=== PATIENT | female | born 1960 | race American Indian/Alaskan Native ===

== ENCOUNTER 2021-07-26 12:57 | Emergency (ER) | payer MEDICAID ==
[2021-07-26] MEDS ORDERED: cloNIDine 0.1 MG TAB PO ONE ×2 (14:19→15:55)
--- NOTE | 2021-07-26 14:54 | Emergency Department Report ---
ED General Adult HPI - General Chief complaint: High BP Stated complaint: MARIE, FEELS VIBRATIONS THRU BODY Time Seen by Provider: 07/26/21 13:55 Source: patient Mode of arrival: Ambulatory Limitations: No Limitations - History of Present Illness Initial comments: Patient is 60 years old female with history of hypertension. Patient presented to the ER comedy by her family for evaluation of elevated blood pressure and generalized numbness and vibration in her body for the last 7 months. Patient denied any headache, neck pain, chest pain or shortness of breath. Patient denied any focal weakness, bowel or bladder incontinence. Family stated that she is not compliant with her medication. Severity scale (0 -10): 5 - Related Data Allergies Allergy/AdvReac Type Severity Reaction Status Date / Time No Known Allergies Allergy Verified 07/26/21 14:18 ED Review of Systems ROS: Stated complaint: MARIE, FEELS VIBRATIONS THRU BODY Other details as noted in HPI Comment: All other systems reviewed and negative Constitutional: denies: chills, fever Respiratory: denies: cough, shortness of breath, SOB with exertion Cardiovascular: denies: chest pain, palpitations Gastrointestinal: denies: abdominal pain, nausea, vomiting Neurological: paresthesias (Chronic) ED Physical Exam - General Limitations: No Limitations General appearance: alert, in no apparent distress - Head Head exam: Present: atraumatic, normocephalic, normal inspection - Eye Eye exam: Present: normal appearance, PERRL - ENT ENT exam: Present: normal exam, normal orophraynx, mucous membranes moist - Neck Neck exam: Present: normal inspection, full ROM. Absent: tenderness, m eningismus - Respiratory Respiratory exam: Present: normal lung sounds bilaterally - Cardiovascular Cardiovascular Exam: Present: regular rate, normal rhythm, normal heart sounds - GI/Abdominal GI/Abdominal exam: Present: soft, normal bowel sounds. Absent: distended, tenderness, guarding, rebound, rigid, organomegaly, mass, bruit, pulsatile mass, hernia - Extremities Exam Extremities exam: Present: normal inspection, full ROM, normal capillary refill. Absent: tenderness - Back Exam Back exam: Present: normal inspection, full ROM. Absent: CVA tenderness (R), CVA tenderness (L) - Neurological Exam Neurological exam: Present: alert, oriented X3, CN II-XII intact, normal gait, reflexes normal. Absent: motor sensory deficit - Psychiatric Psychiatric exam: Present: normal mood - Skin Skin exam: Present: warm, intact, normal color ED Course Vital Signs 07/26/21 07/26/21 07/26/21 14:15 15:08 16:21 Temperature 97.6 F Pulse Rate 71 68 66 Respiratory 18 Rate Blood Pressure 196/85 169/102 175/99 [Left] O2 Sat by Pulse 100 Oximetry ED Medical Decision Making - Lab Data Result diagrams: 07/26/21 14:54 07/26/21 14:54 Critical care attestation.: If time is entered above; I have spent that time in minutes in the direct care of this critically ill patient, excluding procedure time. ED Disposition Clinical Impression: Malignant hypertension Disposition: 07 LEFT AGAINST MEDICAL ADVICE Is pt being admited?: No Condition: Stable Instructions: Hypertension (ED), Hypertension, Adult Referrals: CARMEN ABDI NP [Primary Care Provider] - 3-5 Days
[2021-07-26 15:25] LABS: Basophils # (Auto) 0.1 K/mm3 (0.0-0.1); Basophils % (Auto) 1.5 % (0.0-1.8); Eosinophils # (Auto) 0.3 K/mm3 (0.0-0.4); Eosinophils % (Auto) 8.8 % (0.0-4.3); Hematocrit 38.3 % (30.3-42.9); Hemoglobin 11.8 gm/dl (10.1-14.3); Lymphocytes # (Auto) 1.3 K/mm3 (1.2-5.4); Lymphocytes % (Auto) 35.7 % (13.4-35.0); Mean Corpuscular HGB Conc 31 % (30-34); Mean Corpuscular Volume 85 fl (79-97); Monocytes # (Auto) 0.4 K/mm3 (0.0-0.8); Platelet Count 231 K/mm3 (140-440); Red Cell Distribution Width 13.7 % (13.2-15.2)
[2021-07-26 15:38] LABS: BUN/Creatinine Ratio 20; Blood Urea Nitrogen 18 mg/dL (7-17); Hemolysis Index 3
[2021-07-26 16:22] VITALS: BP 175/99
== END 2021-07-26 16:25 | disposition left against medical advice (07) ==
LOC: ED 12:57
DX: I10 Essential (primary) hypertension (principal)
CPT/HCPCS: 36415; 80048; 85025; 99283